=== PATIENT | female | born 1985 | race American Indian/Alaskan Native ===

== ENCOUNTER 2021-04-11 20:59 | Outpatient (CLI) | payer OTHER ==
[2021-04-11 21:32] VITALS: BP 111/59
[2021-04-11 21:58] LABS: Bacteria,Urine 2+ /HPF (Negative); Bilirubin,Urine NEG (Negative); Blood,Urine NEG (Negative); Color,Urine Straw (Yellow); Protein,Urine <15 mg/dL mg/dL (Negative); Urobilinogen,Urine < 2.0 mg/dL (<2.0)
[2021-04-11] MEDS ORDERED: NITROFURANTOIN MONOHYD/M-CRYST 100 MG CAP PO ONE (23:00)
== END 2021-04-11 22:36 | disposition home or self-care (01) ==
LOC: TRG 20:59 → APU 21:01 → TRG 22:36
PROVIDERS: ATTEND Obstetrics & Gynecology
DX: O26.892 Other specified pregnancy related conditions, second trimester (principal); R33.9 Retention of urine, unspecified; Z3A.23 23 weeks gestation of pregnancy
CPT/HCPCS: 81001; 87086

== ENCOUNTER 2021-07-09 11:29 | Outpatient (CLI) | payer OTHER ==
[2021-07-09] MEDS ORDERED: LACTATED RINGERS 500 ML IV ONE (12:13)
[2021-07-09 13:07] LABS: Bacteria,Urine 4+ /HPF (Negative); Bilirubin,Urine NEG (Negative); Blood,Urine NEG (Negative); Color,Urine Yellow (Yellow); Mucus,Urine 3+ /HPF; Urobilinogen,Urine < 2.0 mg/dL (<2.0)
--- NOTE | 2021-07-09 13:44 | Event Note ---
Date: 07/09/21 S: "I had a weird night last night. I was sweating and turned the air on, but then the air caused me to have pain." @ 36.4 weeks presents via self with c/o continuous lower middle back pain, presently 5/10, since last night as well as two episodes of emesis yesterday. Has not eaten or drank anything since last night. Took Zofran x2 yesterday immediately prior to eating. No known sick contacts. Affirms movement and denies vaginal bleeding, LOF, chest pain, headache, vision changes, SOB, and diarrhea. Does endorse ongoing, unchanged vaginal discharge. O: Unlabored breathing, speaking in complete sentences in no apparent acute distress HR: 77-96 BP: initial BP: 152/70, repeat BP x2 hours all normotensive. SpO2: 97-99 Cat 1 FHT Urine: neg nitrites/ neg leukocytes/ 30mg/dl protein/ trace ketones Urine Cx: pending A: Round ligament pain Isolated MRBP, pt currently asymptomatic for pre-eclampsia. Pre-eclampsia labs normal PO hydrate P: Discussed round ligament pain and measures to promote increased comfort including PO hydration, side lying release stretches, sitting on exercise ball, avoid sitting for prolonged periods of time, and support belt. Take Zofran 30 minutes prior to eating. Discharged home with strict return precautions. Keep all scheduled care appointments. Next appointment scheduled on: 07/14/21
[2021-07-09 15:02] LABS: Hematocrit 28.1 % (30.3-42.9); Mean Corpuscular HGB Conc 36 % (30-34); Mean Corpuscular Volume 92 fl (79-97); Platelet Count 295 K/mm3 (140-440); Red Blood Count 3.05 M/mm3 (3.65-5.03); Red Cell Distribution Width 12.9 % (13.2-15.2)
[2021-07-09 15:22] LABS: Alanine Aminotransferase 8 units/L (7-56); Uric Acid 2.7 mg/dL (3.5-7.6)
[2021-07-09 16:04] VITALS: BP 125/70
== END 2021-07-09 16:32 | disposition home or self-care (01) ==
LOC: APU 11:29 → TRG 11:29
PROVIDERS: ATTEND Obstetrics & Gynecology
DX: O26.893 Other specified pregnancy related conditions, third trimester (principal); M54.50 Low back pain, unspecified; R10.30 Lower abdominal pain, unspecified; R10.2 Pelvic and perineal pain; O99.513 Diseases of the respiratory system complicating pregnancy, third trimester; J45.909 Unspecified asthma, uncomplicated; Z3A.36 36 weeks gestation of pregnancy
CPT/HCPCS: 36415; 59025; 81001; 82565; 83615; 84450; 84460; 84550; 85027; 87086; J7120; 96360

== ENCOUNTER 2021-07-21 11:25 | Inpatient (IN) | payer OTHER ==
[2021-07-21] MEDS ORDERED: ACETAMINOPHEN 325 MG TAB PO PRN (11:52)
[2021-07-21] MEDS ORDERED: fentaNYL 100 MCG/2 ML INJ IV PRN (11:52)
[2021-07-21] MEDS ORDERED: MINERAL OIL 30 ML ORAL LIQD PO PRN ×2 (11:52→22:00)
[2021-07-21] MEDS ORDERED: LOPERAMIDE 2 MG CAP PO PRN (11:52)
[2021-07-21] MEDS ORDERED: CARBOPROST TROMETHAMINE 250 MCG/1 ML INJ IM PRN (11:52)
[2021-07-21] MEDS ORDERED: NalbUPHINE 10 MG/1 ML INJ IV PRN (11:52)
[2021-07-21] MEDS ORDERED: TERBUTALINE 1 MG/1 ML INJ SUB-Q PRN (11:52)
[2021-07-21] MEDS ORDERED: OXYTOCIN 10 UNIT/1 ML INJ IM PRN (11:52)
[2021-07-21] MEDS ORDERED: ONDANSETRON 4 MG/2 ML INJ IV PRN (11:52)
[2021-07-21] MEDS ORDERED: LIDOCAINE (2%) 20 MG/1 ML VIAL 20 ML MDV INFILTRATI SCH (11:52)
[2021-07-21] MEDS ORDERED: METHYLERGONOVINE MALEATE 0.2 MG/ML VIAL IM PRN (11:52)
[2021-07-21] MEDS ORDERED: miSOPROStol 200 MCG TAB PR PRN (11:52)
[2021-07-21] MEDS ORDERED: ePHEDrine SULFATE 50 MG/1 ML INJ IV PRN ×2 (11:52→12:30)
[2021-07-21] MEDS ORDERED: OXYTOCIN DRIP 30 UNITS/500 ML BAG IV SCH (12:00)
--- NOTE | 2021-07-21 12:02 | History and Physical Report ---
History of Present Illness Date of examination: 07/21/21 Chief complaint: sent from office for admission and IOL d/t pre-e History of present illness: EDC Calculations by LMP: 08/04/2021 Past History : 4 Term Births: 1 Premature Births: 0 Living Children: 1 Para: 1 Mult. Births: 0 Prev : 0 Aborta: 2 Elect. Ab: 1 Spont. Ab: 0 Ectopics: 1 # 1 Delivery date: 2005 Weeks Gestation: 37 labor: no Delivery type: Anesthesia type: none Delivery location: [place], [place] Sex: Male weight: 7-5 Comments: IOL: Possible macrosomia # 2 Delivery date: 2009 Weeks Gestation: Unknown Delivery type: ectopic Comments: had methotraxate # 3 Delivery date: 2015 Weeks Gestation: 7 Delivery type: EAB Comments: D&C: no complications Past Medical History: Reviewed and updated today: Allergies-seasonal Asthma Eczema Past Surgical History: Reviewed and updated today: negative Family History Summary: First Degree Blood Relative - Has No Known Family History - Entered On: 02/15 Social History: Patient is single Smoking History: Patient is a former smoker. 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 % Sun Exposure: rarely No Dietary Counseling Reason: pn yes Alcohol Use: no Drug Use: no Past Medical History Anesthesia Complications: negative Anemia: negative Autoimmune Disorder: negative Bleeding Disorder: negative Blood Transfusions: negative Breast Disease: negative Diabetes: negative Heart Disease: negative Hypertension: negative Hepatitis/Liver Disease: negative Kidney Disease/UTI: negative Neurologic/Epilepsy/Migraines: negative Phlebitis/Varicosities: negative Psychiatric: negative Pulmonary Disease/Asthma: negative Thyroid Disease: negative Hospitalizations: negative Surgery (Non-global consumer sector vice president): negative Abnormal PAP: negative HARRIET Exposure: negative Infertility: negative Uterine Anomaly: negative Uterine Surgery (not C/S): negative Other Gynecologic Problems: negative Social Hx: Patient is single Smoking History: Patient is a former smoker. Infection History Hx of STD: none HIV Risk Eval: no Hepatitis B Risk Eval: low risk Personal hx. of genital herpes: no Partner hx. of genital herpes: no Rash, Viral, or Febrile illness since last LMP? no Varicella/Chicken Pox Status: Previous Disease TB Risk: no Genetic History Congenital Heart Defect: Mom: no Forest Disease: Mom: no Thalassemia Mom: no Neural Tube Defect Mom: no Down's Syndrome Mom: no Gilmar-Sachs Mom: no Sickle Cell Disease/Trait Mom: no Hemophilia Mom: no Muscular Dystrophy Mom: no Cystic Fibrosis Mom: no Ward Chorea Mom: no Mental Retardation Mom: no Fragile X Mom: no Other Genetic/Chromosomal Disorder Mom: no Child w/other defect Mom: no Enviromental Exposures Xray Exposure: no Medication, drug, or alcohol use since LMP: no Chemical/Other Exposure: no Exposure to Cat Liter: no Hx of Parvovirus (Fifth Disease): no Occupational Exposure to Children: none Active Medications (reviewed today): None Current Allergies: * PCN (Critical) * SHELLFISH (Critical) * NUTS (Critical) Past History Past Medical History: other (see HPI) Past Surgical History: other (see HPI) 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) Family/Genetic History: other (see HPI) Social history: no significant social history - Obstetrical History Expected Date of Delivery: 08/04/21 Actual Gestation: 38 Week(s) 0 Day(s) : 4 Para: 1 Hx # Term Pregnancies: 1 Number of Pregnancies: 0 Spontaneous Abortions: 2 Induced : 0 Number of Living Children: 1 Medications and Allergies Allergies Allergy/AdvReac Type Severity Reaction Status Date / Time Penicillins AdvReac Swelling Verified 11/30/12 10:24 Home Medications Medication Instructions Recorded Confirmed Last Taken Type hydrOXYzine HCL [Atarax] 25 mg PO Q6HR PRN #20 tablet 11/30/12 02/23/13 02/17/13 19:00 Rx Azithromycin [Zithromax Z-JB] 250 mg PO DAILY #6 tab 02/23/13 Unknown Rx HYDROcodone/APAP 5-325 [[place] 1 each PO Q6HR PRN #10 tablet 02/23/13 Unknown Rx 5/325 mg] Neomy/Polymyx B/Hc (Otic) Soln 4 drops OT TID #10 ml 02/23/13 Unknown Rx [Cortisporin (Otic) Soln] Nitrofurantoin [place]/M-Cryst 100 mg PO Q12HR #14 capsule 04/11/21 Unknown Rx [Macrobid CAP] Review of Systems All systems: negative - Vital Signs Vital signs: Vital Signs Pulse BP Pulse Ox 81 124/77 98 07/21/21 11:50 07/21/21 11:50 07/21/21 11:50 Temp Pulse Resp BP Pulse Ox 85 124/77 97 07/21/21 11:55 07/21/21 11:50 07/21/21 11:55 - Physical Exam Cardiovascular: Regular rate Lungs: Positive: Normal air movement Abdomen: Positive: normal appearance, soft Genitourinary (Female): Positive: normal external genitalia, normal perenium Vulva: both: normal Vagina: Positive: normal moisture Uterus: Positive: normal size, normal contour Anus/Rectum: Positive: normal perianal skin Extremities: Positive: normal - Obstetrical FHR: auscultation normal Cervical Dilatation: 0 (SVE by Dr. Álvarez in office) Cervical Effacement Percentage: 50 station: -2 Results Result Diagrams: 07/21/21 11:52 07/21/21 11:52 All other labs normal. Assessment and Plan 36y/o @ 38+0 weeks admitted from office for IOL. b/p in office 140/98, +protein, +ketones, +nitrites. Pt c/o periorbital edema, ringing in her ears and nausea. Plan: Admit for IOL, serial IOL w/ cervical ripening GBS + tx in active labor Pre-e labs Mag sulfate for severe range b/p and when in active labor close monitoring of s/s worsening pre-e strict I&O straight cath urine culture d/t + nitrites - Patient Problems (1) 38 weeks gestation of Current Visit: Yes Status: Acute (2) Pre-eclampsia Current Visit: Yes Status: Acute Qualifiers: Trimester: third trimester Qualified Code(s): O14.93 - Unspecified pre- eclampsia, third trimester (3) GBS (group B Streptococcus carrier), +RV culture, currently Current Visit: Yes Status: Acute Plan to address problem: treat with cleocin when in active labor
[2021-07-21] MEDS: LACTATED RINGERS 1,000 ML IV SCH ×2 (12:22→19:59)
[2021-07-21 12:48] LABS: Hematocrit 31.6 % (30.3-42.9); Hemoglobin 10.5 gm/dl (10.1-14.3); Mean Corpuscular HGB Conc 33 % (30-34); Mean Corpuscular Volume 95 fl (79-97); Platelet Count 279 K/mm3 (140-440); Red Blood Count 3.32 M/mm3 (3.65-5.03); Red Cell Distribution Width 13.6 % (13.2-15.2)
[2021-07-21 12:51] LABS: Alanine Aminotransferase 9 units/L (7-56); Uric Acid 3.5 mg/dL (3.5-7.6)
[2021-07-21 13:13] LABS: Bilirubin,Urine Negative (Negative); Color,Urine Yellow (Yellow)
[2021-07-21 13:14] LABS: Protein,Urine <15 mg/dL mg/dL (Negative)
[2021-07-21] MEDS: OXYTOCIN DRIP 30 UNITS/500 ML BAG IV SCH (13:22)
[2021-07-21 13:32] LABS: Bacteria,Urine 4+ /HPF (Negative)
--- NOTE | 2021-07-21 18:33 | Event Note ---
Date: 07/21/21 When seen in the office pt was noted to have 4+protein and bps of 140s/90. 5 days ago while in triage she had 30 protein in UA and also and elevated bp of 150s/90s. Pt does not have h/o htn. Pt also c/o having ringing in her ears that started today. Pt admitted for IOl for preE based on elevated pbs and protein in UA in the office and previous triage admission. pt has been normotensive since admission so will hold mag at this time. Serial IOL was d/w by this provider prior to sending her in for IOL. All risk, benefits and alternatives were d/w pt and questions were addressed and answered.
[2021-07-21] MEDS ORDERED: DINOPROSTONE 10 MG VAG SUPP VG ONE (21:17)
[2021-07-22] MEDS: BUTORPHANOL 2 MG/1 ML INJ IV PRN ×2 (04:53→08:00)
--- NOTE | 2021-07-22 07:51 | Progress Note ---
Assessment and Plan A: 36 y.o. @ 38.1 wks , IOL d/t pre eclampsia. - Patient Problems (1) 38 weeks gestation of Current Visit: Yes Status: Acute Plan to address problem: Continue to monitor status through EFM. (2) GBS (group B Streptococcus carrier), +RV culture, currently Current Visit: Yes Status: Acute Plan to address problem: Antibiotics when in more active labor. (3) Pre-eclampsia Current Visit: Yes Status: Acute Qualifiers: Trimester: third trimester Qualified Code(s): O14.93 - Unspecified pre- eclampsia, third trimester Plan to address problem: Continue with IOL. - Will start Pitocin after shower, eating, walking for 2 hours. Continue to monitor blood pressures. Continue to monitor for worsening s/sx of pre eclampsia. Will consider magnesium infusion if blood pressures become persistently severe range. Subjective - Subjective Date of service: 07/22/21 Principal diagnosis: IUP @ 38.1 wks pre eclampsia Interval history: Pt denies MULLEN, blurred vision, spots before her eyes, chest pain, upper abdominal pain, vaginal bleeding, LOF. Having some contractions. Pt and family member upset d/t not knowing plan of care during IOL. Explained to the patient the IOL process for our practice. This AM we are going to remove the Cervidil, allow the patient to eat breakfast, apply the wireless EFM and allow her to walk around after eating breakfast. After walking for a few hours, will start Pitocin. Pt, family member verbalized understanding and agreed to plan. Patient reports: movement normal, no new complaints, no loss of fluid, no vaginal bleeding, no contractions Objective - Vital Signs Vital Signs: Vital Signs - 12hr 07/21/21 07/21/21 07/21/21 19:55 19:58 20:00 Temperature Pulse Rate 36 L 72 74 Respiratory Rate Blood Pressure 126/82 O2 Sat by Pulse 98 97 Oximetry 07/21/21 07/21/21 07/21/21 20:05 20:10 20:15 Temperature Pulse Rate 79 77 76 Respiratory Rate Blood Pressure O2 Sat by Pulse 98 98 98 Oximetry 07/21/21 07/21/21 07/21/21 20:20 20:25 20:29 Temperature Pulse Rate 71 73 75 Respiratory Rate Blood Pressure 129/70 O2 Sat by Pulse 98 99 Oximetry 07/21/21 07/21/21 07/21/21 20:30 20:35 20:40 Temperature Pulse Rate 76 88 76 Respiratory Rate Blood Pressure O2 Sat by Pulse 97 97 97 Oximetry 07/21/21 07/21/21 07/21/21 20:45 20:50 20:55 Temperature Pulse Rate 77 77 83 Respiratory Rate Blood Pressure O2 Sat by Pulse 99 99 98 Oximetry 07/21/21 07/21/21 07/21/21 20:58 21:00 21:05 Temperature Pulse Rate 71 89 77 Respiratory Rate Blood Pressure 127/73 O2 Sat by Pulse 97 97 Oximetry 07/21/21 07/21/21 07/21/21 21:54 21:59 22:04 Temperature Pulse Rate 76 96 H 93 H Respiratory Rate Blood Pressure O2 Sat by Pulse 96 98 99 Oximetry 07/21/21 07/21/21 07/21/21 22:09 22:12 22:22 Temperature Pulse Rate 84 80 84 Respiratory Rate Blood Pressure O2 Sat by Pulse 99 94 99 Oximetry 07/21/21 07/21/21 07/21/21 22:24 22:27 22:31 Temperature 97.9 F Pulse Rate 67 76 Respiratory 18 Rate Blood Pressure 124/76 O2 Sat by Pulse 99 98 Oximetry 07/21/21 07/21/21 07/21/21 22:32 22:37 22:42 Temperature Pulse Rate 80 94 H 81 Respiratory Rate Blood Pressure O2 Sat by Pulse 98 97 98 Oximetry 07/21/21 07/21/21 07/21/21 22:47 22:52 22:55 Temperature Pulse Rate 78 81 73 Respiratory Rate Blood Pressure 122/66 O2 Sat by Pulse 97 96 Oximetry 07/21/21 07/21/21 07/21/21 22:57 23:02 23:07 Temperature Pulse Rate 81 78 85 Respiratory Rate Blood Pressure O2 Sat by Pulse 97 96 96 Oximetry 07/21/21 07/21/21 07/21/21 23:12 23:17 23:22 Temperature Pulse Rate 89 90 99 H Respiratory Rate Blood Pressure O2 Sat by Pulse 96 96 97 Oximetry 07/21/21 07/21/21 07/21/21 23:26 23:27 23:32 Temperature Pulse Rate 82 88 90 Respiratory Rate Blood Pressure 105/57 O2 Sat by Pulse 97 97 Oximetry 07/21/21 07/21/21 07/21/21 23:37 23:42 23:47 Temperature Pulse Rate 86 95 H 93 H Respiratory Rate Blood Pressure O2 Sat by Pulse 98 97 97 Oximetry 07/21/21 07/21/21 07/21/21 23:52 23:55 23:57 Temperature Pulse Rate 103 H 95 H 88 Respiratory Rate Blood Pressure 115/72 O2 Sat by Pulse 98 94 97 Oximetry 07/22/21 07/22/21 07/22/21 00:02 00:07 00:11 Temperature Pulse Rate 98 H 86 93 H Respiratory Rate Blood Pressure O2 Sat by Pulse 97 95 94 Oximetry 07/22/21 07/22/21 07/22/21 00:12 00:17 00:22 Temperature Pulse Rate 81 104 H 89 Respiratory Rate Blood Pressure O2 Sat by Pulse 97 95 95 Oximetry 07/22/21 07/22/21 07/22/21 00:27 00:32 00:37 Temperature Pulse Rate 91 H 88 95 H Respiratory Rate Blood Pressure 108/61 O2 Sat by Pulse 96 96 97 Oximetry 07/22/21 07/22/21 07/22/21 00:42 00:47 00:52 Temperature Pulse Rate 110 H 104 H 102 H Respiratory Rate Blood Pressure O2 Sat by Pulse 97 97 97 Oximetry 07/22/21 07/22/21 07/22/21 00:56 00:57 01:02 Temperature Pulse Rate 103 H 95 H 97 H Respiratory Rate Blood Pressure 123/82 O2 Sat by Pulse 93 98 97 Oximetry 07/22/21 07/22/21 07/22/21 01:07 01:12 01:17 Temperature Pulse Rate 95 H 102 H 100 H Respiratory Rate Blood Pressure O2 Sat by Pulse 99 98 96 Oximetry 07/22/21 07/22/21 07/22/21 01:22 01:27 01:32 Temperature Pulse Rate 95 H 86 93 H Respiratory Rate Blood Pressure 119/68 O2 Sat by Pulse 97 94 96 Oximetry 07/22/21 07/22/21 07/22/21 01:37 01:42 01:47 Temperature Pulse Rate 96 H 93 H 93 H Respiratory Rate Blood Pressure O2 Sat by Pulse 97 97 97 Oximetry 07/22/21 07/22/21 07/22/21 01:52 01:55 01:57 Temperature Pulse Rate 95 H 90 101 H Respiratory Rate Blood Pressure 111/61 O2 Sat by Pulse 97 97 Oximetry 07/22/21 07/22/21 07/22/21 02:02 02:07 02:12 Temperature Pulse Rate 97 H 104 H 87 Respiratory Rate Blood Pressure O2 Sat by Pulse 97 97 98 Oximetry 07/22/21 07/22/21 07/22/21 02:15 02:17 02:22 Temperature 98.2 F Pulse Rate 98 H 111 H Respiratory 18 Rate Blood Pressure O2 Sat by Pulse 98 97 97 Oximetry 07/22/21 07/22/21 07/22/21 02:27 02:32 02:37 Temperature Pulse Rate 95 H 91 H 107 H Respiratory Rate Blood Pressure 120/68 O2 Sat by Pulse 97 95 98 Oximetry 07/22/21 07/22/21 07/22/21 02:42 02:47 02:52 Temperature Pulse Rate 96 H 103 H 99 H Respiratory Rate Blood Pressure O2 Sat by Pulse 96 97 95 Oximetry 07/22/21 07/22/21 07/22/21 02:56 02:57 03:02 Temperature Pulse Rate 98 H 103 H 93 H Respiratory Rate Blood Pressure 121/68 O2 Sat by Pulse 97 97 Oximetry 07/22/21 07/22/21 07/22/21 03:07 03:12 03:17 Temperature Pulse Rate 93 H 93 H 100 H Respiratory Rate Blood Pressure O2 Sat by Pulse 97 97 98 Oximetry 07/22/21 07/22/21 07/22/21 03:22 03:26 03:27 Temperature Pulse Rate 93 H 86 96 H Respiratory Rate Blood Pressure 120/69 O2 Sat by Pulse 97 97 Oximetry 07/22/21 07/22/21 07/22/21 03:32 03:37 03:42 Temperature Pulse Rate 88 89 87 Respiratory Rate Blood Pressure O2 Sat by Pulse 97 97 96 Oximetry 07/22/21 07/22/21 07/22/21 03:47 04:31 04:36 Temperature Pulse Rate 85 82 87 Respiratory Rate Blood Pressure O2 Sat by Pulse 97 98 97 Oximetry 07/22/21 07/22/21 07/22/21 04:41 04:46 04:51 Temperature Pulse Rate 83 94 H 94 H Respiratory Rate Blood Pressure O2 Sat by Pulse 97 98 97 Oximetry 07/22/21 07/22/21 07/22/21 04:55 04:56 05:01 Temperature Pulse Rate 84 80 94 H Respiratory Rate Blood Pressure 124/77 O2 Sat by Pulse 97 96 Oximetry 07/22/21 07/22/21 07/22/21 05:06 05:11 05:16 Temperature Pulse Rate 91 H 85 83 Respiratory Rate Blood Pressure O2 Sat by Pulse 96 95 96 Oximetry 07/22/21 07/22/21 07/22/21 05:21 05:25 05:26 Temperature Pulse Rate 86 81 89 Respiratory Rate Blood Pressure 114/68 O2 Sat by Pulse 95 94 92 Oximetry 07/22/21 07/22/21 07/22/21 05:31 05:36 05:41 Temperature Pulse Rate 80 82 82 Respiratory Rate Blood Pressure O2 Sat by Pulse 96 95 95 Oximetry 07/22/21 07/22/21 07/22/21 05:46 05:51 05:56 Temperature Pulse Rate 81 81 85 Respiratory Rate Blood Pressure 116/67 O2 Sat by Pulse 95 96 96 Oximetry 07/22/21 07/22/21 07/22/21 06:01 06:06 06:11 Temperature Pulse Rate 84 82 82 Respiratory Rate Blood Pressure O2 Sat by Pulse 96 95 96 Oximetry 07/22/21 07/22/21 07/22/21 06:16 06:21 06:26 Temperature Pulse Rate 79 88 86 Respiratory Rate Blood Pressure 125/77 O2 Sat by Pulse 97 96 98 Oximetry 07/22/21 07/22/21 07/22/21 06:31 06:40 06:45 Temperature 97.5 F L Pulse Rate 81 83 79 Respiratory 18 Rate Blood Pressure O2 Sat by Pulse 98 98 98 Oximetry 07/22/21 07/22/21 07/22/21 06:50 06:55 07:00 Temperature Pulse Rate 84 75 86 Respiratory Rate Blood Pressure O2 Sat by Pulse 98 98 98 Oximetry 07/22/21 07/22/21 07/22/21 07:05 07:10 07:15 Temperature Pulse Rate 79 89 90 Respiratory Rate Blood Pressure O2 Sat by Pulse 96 96 97 Oximetry 07/22/21 07/22/21 07/22/21 07:20 07:25 07:30 Temperature Pulse Rate 85 83 80 Respiratory Rate Blood Pressure O2 Sat by Pulse 98 96 97 Oximetry 07/22/21 07/22/21 07/22/21 07:35 07:37 07:40 Temperature Pulse Rate 89 78 89 Respiratory Rate Blood Pressure 139/82 137/81 O2 Sat by Pulse 98 98 Oximetry 07/22/21 07:45 Temperature Pulse Rate 80 Respiratory Rate Blood Pressure O2 Sat by Pulse 98 Oximetry - Exam Breasts: deferred Cardiovascular: Regular rate Lungs: Normal air movement Abdomen: Present: normal appearance, soft FHR: category 1 Uterine Contraction Monitor Mode: External Cervical Dilatation: 0.5 (Per operations label clerk RN. ) Cervical Effacement Percentage: 50 station: -3 Uterine Contraction Pattern: Regular Uterine Tone Measurement Phase: Resting Uterine Contraction Intensity: Moderate Extremities: normal Deep Tendon Reflex Grade: Normal +2 - Labs Labs: Abnormal Labs 07/21/21 07/21/21 11:52 12:25 RBC 3.32 L Urine WBC (Auto) 10.0 H U Epithel Cells (Auto) 50.0 H Laboratory Results - last 24 hr 07/21/21 07/21/21 07/21/21 11:30 11:45 11:52 WBC 9.9 RBC 3.32 L Hgb 10.5 Hct 31.6 MCV 95 MCH 32 MCHC 33 RDW 13.6 Plt Count 279 Creatinine Estimated GFR Uric Acid AST ALT Lactate Dehydrogenase Urine Color Urine Turbidity Urine pH Ur Specific [place] Urine Protein Urine Glucose (UA) Urine Ketones Urine Nitrite Urine Bilirubin Urine Urobilinogen Ur Leukocyte Esterase Urine WBC (Auto) Urine RBC (Auto) U Epithel Cells (Auto) Urine Bacteria (Auto) Syphilis IgG/IgM Ab Nonreactive Coronavirus (PCR) Cancelled SARS-CoV-2 (PCR) Negative Blood Type Antibody Screen 07/21/21 07/21/21 07/21/21 11:52 12:09 12:25 WBC RBC Hgb Hct MCV MCH MCHC RDW Plt Count Creatinine 0.6 Estimated GFR > 60 Uric Acid 3.5 AST 13 ALT 9 Lactate Dehydrogenase 172 Urine Color Yellow Urine Turbidity Clear Urine pH 6.0 Ur Specific [place] 1.020 Urine Protein <15 mg/dl Urine Glucose (UA) Negative Urine Ketones Trace Urine Nitrite Negative Urine Bilirubin Negative Urine Urobilinogen 0.0 Ur Leukocyte Esterase Negative Urine WBC (Auto) 10.0 H Urine RBC (Auto) 3.0 U Epithel Cells (Auto) 50.0 H Urine Bacteria (Auto) 4+ Syphilis IgG/IgM Ab Coronavirus (PCR) SARS-CoV-2 (PCR) Blood Type B POSITIVE Antibody Screen Negative
[2021-07-22] MEDS: OXYTOCIN DRIP 30 UNITS/500 ML BAG IV SCH (15:20)
[2021-07-22] MEDS: LACTATED RINGERS 1,000 ML IV SCH (20:47)
--- NOTE | 2021-07-22 20:54 | Event Note ---
Date: 07/22/21 Pt and family member upset regarding IOL process. Explained again to patient and family member the IOL process, medications used, and the process may take three days to get her in active labor. Pt and family member still upset regarding the process. Patient does not want another Cervidil placed. Explained will check cervix and formulate a plan based off cervical exam. Cervical exam: 2/50/-4. station higher than previous exam. Will order u/s for presentation. Pitocin as ordered once vertex presentation confirmed.
[2021-07-22] MEDS ORDERED: DINOPROSTONE 10 MG VAG SUPP VG ONE (21:00)
--- NOTE | 2021-07-22 21:57 | Ultrasound Report ---
ULTRASOUND OBSTETRIC LIMITED INDICATION / CLINICAL INFORMATION: presentation. Clinical Gestational Age (GA) in weeks, days: 38, 1 TECHNIQUE: Transabdominal. COMPARISON: None available. FINDINGS: HEART RATE (beats per minute): 137 PRESENTATION: Cephalic. ADDITIONAL FINDINGS: None. IMPRESSION: 1. No significant abnormality. Signer Name: Nii Gross DO Signed: 07/22/2021 9:52 PM Workstation Name: [id number]
[2021-07-23] MEDS ORDERED: ePHEDrine SULFATE 50 MG/1 ML INJ IV PRN (00:17)
[2021-07-23] MEDS ORDERED: NALOXONE 0.4 MG/1 ML INJ IV PRN (00:17)
--- NOTE | 2021-07-23 00:18 | Anesthesia Consultation ---
Anesthesia Consult and Med Hx Date of service: 07/23/21 - Airway Anesthetic Teeth Evaluation: Good ROM Head & Neck: Adequate Mental/Hyoid Distance: Adequate Mallampati Class: Class II Intubation Access Assessment: Probably Good - Pulmonary Exam CTA: Yes - Cardiac Exam Cardiac Exam: RRR - Pre-Operative Health Status ASA Pre-Surgery Classification: ASA2 Proposed Anesthetic Plan: Epidural, Spinal - Pulmonary Hx Asthma: Yes (FLARES UP WHEN ) - Cardiovascular System Hx Hypertension: No - Central Nervous System Hx Seizures: No Hx Psychiatric Problems: No - Endocrine Hx Renal Disease: No Hx Hypothyroidism: No Hx Hyperthyroidism: No - Hematic Hx Anemia: No Hx Sickle Cell Disease: No - Other Systems Hx Alcohol Use: No
--- NOTE | 2021-07-23 00:19 | Progress Note ---
Spinal Anesthesia Block - Spinal Anesthesia Block Start Time: 23:48 Stop Time: 23:59 Performed by:: ALEXANDER SANTAMARIA Procedure: Combined Spinal-Epidural Patient is requesting epidural for labor and pain. H&P, labs were reviewed. Patient ID confirmed, all questions and concerns were answered, and consent was signed. Timeout was performed at bedside. Patient in sitting position. Sterile prep and drape was performed. 3ml of 1% lidocaine skin wheal at L3- L4 interspace. 17-gauge Tuohy epidural needle was advanced to loss of resistance with saline technique cm. 25G spinal needle introduced through epidural needle to the spinal space. Clear CSF. Injected .1ml of Precedex in the spinal space. Negative CSF negative blood. Epidural catheter advanced to 15 centimeters. Negative aspiration, test dose 3ml 1.5% Lidocaine with epi - negative. Sterile dressing applied. Patient tolerated procedure.
[2021-07-23] MEDS ORDERED: fentaNYL-BUPIV 2 MCG/ML-0.125% 200 MCG/100 ML BAG EPIDURAL SCH (01:00)
--- NOTE | 2021-07-23 03:13 | Procedure Note ---
OB Delivery Note - Delivery Date of Delivery: 07/23/21 ( @ 0215) [employer]: SEVEN MARIE Estimated blood loss: 200cc - Vaginal Delivery presentation: vertex Delivery position: OA Intrapartum events: preeclampsia, mult.variable deceleratio Delivery induction: cervidil Delivery augmentation: pitocin Delivery monitor: external FHT, external uterine Route of delivery: Delivery placenta: spontaneous Delivery cord: 3 umbilical vessels Episiotomy: none Delivery laceration: 1st degree (Hemostatic, no repair needed) Anesthesia: epidural Delivery comments: of viable female infant. Infant to mother's abdomen for skin to skin. Cord clamped after cessation of pulse. Cut by grandmother of . Spontaneous delivery of placenta, intact, complete, 3 vessels noted. Fundus firm, minimal bleeding noted. Perineum and vagina inspected. First degree laceration noted, hemostatic, no repair needed. Sponges and instruments counted X2 and correct X2. Infant weight 6-9. Apgars 8,9. EBL 200 ml. and mother left in stable condition in care of RN. - A at 1 minute: 8 at 5 minutes: 9 Infant Gender: Female (Cristal, 6-9)
[2021-07-23] MEDS ORDERED: PROMETHAZINE 25 MG TAB PO PRN (08:31)
[2021-07-23] MEDS ORDERED: LANOLIN/ZINC/DIMETHICONE (LANSINOH) 7 GM TP PRN ×2 (08:31)
[2021-07-23] MEDS ORDERED: miSOPROStol 100 MCG TAB PR PRN (08:31)
[2021-07-23] MEDS ORDERED: BENZOCAINE/MENTHOL 20/0.5% TOP SPRAY 56 GM TP PRN (08:31)
[2021-07-23] MEDS ORDERED: oxyCODONE /ACETAMINOPHEN 5-325MG TAB PO PRN (08:31)
[2021-07-23] MEDS ORDERED: ONDANSETRON 4 MG/2 ML INJ IV PRN (08:31)
[2021-07-23] MEDS ORDERED: ACETAMINOPHEN 325 MG TAB PO PRN (08:31)
[2021-07-23] MEDS ORDERED: OXYTOCIN DRIP 30 UNITS/500 ML BAG IV SCH (08:31)
[2021-07-23] MEDS ORDERED: WITCH HAZEL/ GLYCERIN PAD TP PRN (08:31)
[2021-07-23] MEDS ORDERED: MAGNESIUM HYDROXIDE (MOM) ORAL LIQD UDC PO PRN (08:31)
[2021-07-23] MEDS ORDERED: diphenhydrAMINE 25 MG CAP PO PRN (08:31)
[2021-07-23] MEDS ORDERED: PROMETHAZINE 25 MG RECT SUPP PR PRN (08:31)
--- NOTE | 2021-07-23 08:31 | Progress Note ---
Assessment and Plan A: 36 y.o. s/p , pre eclampsia. - Patient Problems (1) Pre-eclampsia Current Visit: Yes Status: Acute Qualifiers: Trimester: third trimester Qualified Code(s): O14.93 - Unspecified pre- eclampsia, third trimester Plan to address problem: Continue to monitor blood pressures. Continue to monitor for worsening s/sx of pre eclampsia. (2) (normal spontaneous vaginal delivery) Current Visit: Yes Status: Acute Plan to address problem: Continue with care. Was GBS positive and received two doses of Clindamycin. - Will speak with Peds team to see if will be able to be discharged home with mother on 07/24 or if infant will need to stay 48 hours. Subjective - Subjective Date of service: 07/23/21 Principal diagnosis: s/p ~ 5 hours Interval history: Pt denies MULLEN, blurred vision, spots before her eyes, chest pain, shortness of breath, and upper abdominal pain. Patient reports: appetite normal, voiding normally, pain well controlled, ambulating normally Ider: doing well Objective - Vital Signs Latest vital signs: Vital Signs Temp Pulse Resp BP Pulse Ox Pulse Ox 07/23/21 05:28 86 98 07/23/21 05:26 87 93 07/23/21 05:23 77 99 07/23/21 05:18 69 99 07/23/21 05:14 67 119/68 07/23/21 05:13 69 98 07/23/21 05:08 78 97 07/23/21 05:04 73 119/78 07/23/21 05:03 81 98 07/23/21 04:58 88 99 07/23/21 04:54 83 128/83 07/23/21 04:53 77 98 07/23/21 04:48 73 98 07/23/21 04:46 97.6 F 07/23/21 04:45 78 119/81 07/23/21 04:43 71 98 07/23/21 04:38 79 97 07/23/21 04:34 77 122/84 07/23/21 04:33 77 98 07/23/21 04:28 83 98 07/23/21 04:24 69 121/80 07/23/21 04:23 74 98 07/23/21 04:18 75 99 07/23/21 04:14 71 117/75 06/05 04:13 72 99 06/05 04:08 71 98 0605 04:04 68 112/73 0605 04:03 67 97 0605 03:58 70 97 0605 03:54 62 114/74 0605 03:53 67 96 0605 03:48 68 97 0605 03:44 61 110/69 06/05 03:43 66 98 0605 03:38 68 97 0605 03:34 67 110/70 0605 03:33 69 97 06/05/ 03:28 68 96 0605 03:24 69 114/73 0605 03:23 70 96 0605 03:18 68 98 0605 03:14 68 114/71 0605 03:13 68 98 0605 03:08 70 98 0605 03:05 83 120/72 0605 03:03 77 97 06/05 02:58 70 98 06/05 02:55 69 93 06/05 02:53 84 97 0605 02:48 82 96 06/05 02:45 88 122/64 0605 02:43 92 H 98 0605 02:38 94 H 97 0605 02:35 97.7 F 93 H 125/68 0605 02:33 94 H 97 06/05 02:28 88 98 0605 02:25 82 114/57 06/05/22 02:23 84 97 06/05 02:18 101 H 96 06/05 02:13 106 H 97 06/05 02:09 96 H 94 06/05 02:08 86 95 06/05 02:04 79 97/56 06/05/ 02:03 81 93 06/05/22 01:58 85 93 06/05/22 01:55 83 98/55 06/05/22 01:53 83 94 06/05/22 01:50 86 94 06/05/22 01:48 82 95 06/0522 01:45 92 H 116/60 06/05/22 01:43 106 H 94 07/23/21 01:42 81 94 05 01:38 85 95 05 01:36 87 93 05 01:33 91 H 99 0605 01:31 86 94 07/23/21 01:28 105 H 96 07/23/21 01:25 87 123/78 07/23/21 01:23 90 98 05 01:18 104 H 98 07/23/21 01:16 97 H 94 05 01:13 108 H 97 07/23/21 01:08 106 H 98 07/23/21 01:06 82 113/64 07/23/21 01:03 100 H 97 07/23/21 00:58 88 95 07/23/21 00:53 86 98 07/23/21 00:52 99 H 111/71 07/23/21 00:48 102 H 97 07/23/21 00:43 96 H 97 07/23/21 00:40 82 94 07/23/21 00:38 89 97 0605 00:36 82 123/60 05 00:34 84 94 05 00:33 87 95 07/23/21 00:28 92 H 98 05 00:23 83 98 05 00:20 86 123/58 05 00:19 88 114/54 07/23/21 00:18 80 96 05 00:16 85 130/59 0605 00:14 86 135/74 05 00:13 83 97 05 00:12 88 137/79 0605 00:11 80 128/80 0605 00:08 72 129/57 97 05 00:07 82 134/63 0605 00:04 95 H 141/83 05 00:03 81 98 0605 00:02 90 141/80 05 00:00 88 131/78 06 23:58 97 H 136/79 98 07/22/21 23:56 77 132/81 06 23:54 88 122/74 0604 23:53 93 H 96 06/04/22 23:48 88 145/82 96 06 23:43 86 97 06 23:38 90 97 07/22/21 23:33 100 H 100 07/22/21 23:28 84 97 07/22/21 23:23 84 129/82 98 07/22/21 23:18 85 97 07/22/21 23:13 82 97 07/22/21 23:08 86 98 07/22/21 23:03 81 98 06 22:58 82 98 06 22:57 98.0 F 07/22/21 22:53 77 97 06 22:52 80 135/77 07/22/21 22:33 83 98 07/22/21 22:28 84 100 07/22/21 22:23 83 98 07/22/21 22:18 81 97 07/22/21 22:13 85 98 07/22/21 22:08 88 98 07/22/21 22:03 84 96 07/22/21 21:58 92 H 98 07/22/21 21:53 80 97 07/22/21 21:48 80 97 07/22/21 21:43 86 98 07/22/21 21:38 87 98 07/22/21 21:33 93 H 96 07/22/21 21:28 89 97 07/22/21 21:23 91 H 98 07/22/21 21:18 83 96 07/22/21 21:13 79 96 07/22/21 21:08 83 96 07/22/21 21:03 78 97 07/22/21 20:58 81 99 07/22/21 20:53 82 97 07/22/21 20:48 84 98 07/22/21 20:43 87 98 06 20:38 87 99 07/22/21 20:33 86 96 07/22/21 20:28 83 97 07/22/21 20:23 89 98 07/22/21 20:18 82 98 07/22/21 20:16 84 94 07/22/21 20:15 81 121/78 07/22/21 20:13 89 98 06 20:08 79 98 06 20:07 98.2 F 998 H 07/22/21 19:58 86 98 06/04/22 19:53 88 97 07/22/21 19:48 87 98 07/22/21 19:43 89 97 07/22/21 19:38 88 97 07/22/21 19:33 87 98 07/22/21 19:28 85 98 07/22/21 19:23 94 H 98 07/22/21 19:18 90 98 07/22/21 19:13 87 98 07/22/21 19:08 85 98 07/22/21 19:03 86 98 07/22/21 18:58 92 H 98 07/22/21 18:53 86 97 07/22/21 18:48 85 98 07/22/21 18:00 107 H 99 07/22/21 17:55 100 H 99 07/22/21 17:50 86 98 07/22/21 17:45 85 98 07/22/21 17:40 82 99 07/22/21 17:35 78 98 07/22/21 17:30 82 99 07/22/21 17:25 77 98 07/22/21 17:20 77 98 07/22/21 17:15 82 98 07/22/21 17:10 84 100 07/22/21 17:05 79 99 07/22/21 17:00 82 99 07/22/21 16:55 81 98 07/22/21 16:39 90 07/22/21 16:38 85 99 07/22/21 16:33 99 H 97 07/22/21 16:28 89 97 07/22/21 16:23 85 98 07/22/21 16:18 93 H 98 07/22/21 16:13 92 H 97 07/22/21 16:08 92 H 97 07/22/21 16:03 88 97 07/22/21 15:58 87 98 07/22/21 15:53 91 H 97 07/22/21 15:48 84 97 07/22/21 15:43 80 97 07/22/21 15:38 82 98 07/22/21 15:33 81 98 07/22/21 15:28 85 97 07/22/21 15:25 99.1 F 18 07/22/21 15:23 82 98 07/22/21 15:18 83 97 07/22/21 15:13 94 H 97 07/22/21 15:12 85 123/71 94 07/22/21 15:08 95 H 98 07/22/21 14:58 86 96 07/22/21 14:53 81 96 07/22/21 14:51 87 94 07/22/21 14:48 82 93 07/22/21 14:46 85 94 07/22/21 14:43 79 96 07/22/21 14:38 83 97 07/22/21 14:33 94 H 96 07/22/21 14:28 86 97 07/22/21 14:23 78 97 07/22/21 14:18 80 95 07/22/21 14:13 77 97 07/22/21 14:08 77 96 07/22/21 14:03 80 97 07/22/21 13:58 80 96 07/22/21 13:53 78 96 07/22/21 13:48 75 97 07/22/21 13:43 98 H 98 07/22/21 13:38 83 96 07/22/21 13:33 78 96 07/22/21 13:28 83 97 07/22/21 13:23 85 97 07/22/21 13:18 80 97 07/22/21 13:13 91 H 97 07/22/21 13:08 81 99 07/22/21 13:03 83 97 07/22/21 12:58 80 97 07/22/21 12:53 92 H 97 07/22/21 12:48 84 98 07/22/21 12:43 96 H 100 07/22/21 12:38 94 H 96 07/22/21 12:33 85 97 07/22/21 12:28 85 97 07/22/21 12:23 82 97 07/22/21 12:18 82 97 07/22/21 12:13 85 97 07/22/21 12:08 84 98 07/22/21 12:04 87 93 07/22/21 12:03 79 96 07/22/21 11:58 84 130/81 91 07/22/21 10:23 98.1 F 16 07/22/21 09:58 74 128/73 07/22/21 09:31 89 99 07/22/21 08:57 98 07/22/21 08:44 88 96 07/22/21 08:39 87 97 07/22/21 08:35 80 94 0604/22 08:34 81 95 Intake and Output 07/22/21 07/23/21 07/23/21 22:59 06:59 14:59 Intake Total 381.500 Output Total 300 Balance 381.500 -300 Intake: IV 21.500 PITOCin/NS 30 UNIT/500ML 21.500 30 units In 500 ml @ 2 mls/hr IV TITR LAZARA Rx#: [id number] Oral 360 Output: Urine 300 Indwelling 300 Other: Total, Intake Amount 360 # Voids Void 600 Estimated Blood Loss 200 - Exam Narrative Exam: Patient was GBS positive and received two doses of Clindomycin before delivery. Cardiovascular: Present: Regular rate Lungs: Present: Normal air movement Abdomen: Present: normal appearance, soft Vulva: both: normal Uterus: Present: normal, firm, other (Minimal vaginal bleeding noted. ) Extremities: Present: normal Deep Tendon Reflex Grade: Normal +2
--- NOTE | 2021-07-23 11:01 | Post Anesthesia Evaluation ---
- Post Anesthesia Evaluation Patient Participated: Yes Airway Patent: Yes Stable Respiratory Function: Yes Temp > 96.8F: Yes Pain Manageable: Yes Adequeate Hydration: Yes Anesthesia Complications: No Block Receding Appropriately: Yes
[2021-07-23] MEDS: DOCUSATE SODIUM 100 MG CAP PO SCH ×2 (13:53→21:38)
[2021-07-23] MEDS: IBUPROFEN 800 MG TAB PO SCH ×2 (13:53→21:38)
[2021-07-23] MEDS: PRENATAL VIT27-FE FUMARATE-FOLIC ACID VIT TAB PO SCH (13:54)
[2021-07-23 16:22] LABS: Hematocrit 29.2 % (30.3-42.9); Hemoglobin 9.7 gm/dl (10.1-14.3)
--- NOTE | 2021-07-23 23:39 | Progress Note ---
Subjective Date of service: 07/23/21 Principal diagnosis: s/p ~ 5 hours Interval history: At 0130, pt complained of an unilateral (left side) block via epidural. Upon inspection of epidural catheter, the catheter was no longer at 15cm. Epidural pump was at the maximum dose. Epidural catheter was removed, tip intact and a Saddle block/ Spinal was administered. Pt stated immediated relief. Pt tolerated procedure. Pt was placed in supine position and assessed. Objective - Constitutional Vitals: Vital Signs - 12hr 07/23/21 07/23/21 07/23/21 12:00 15:46 18:30 Temperature 98.7 F 97.7 F 97.7 F Pulse Rate 65 81 79 Respiratory 19 18 18 Rate Blood Pressure 140/89 109/71 Blood Pressure 114/68 [Right] O2 Sat by Pulse 99 97 100 Oximetry - Labs CBC & Chem 7: 07/23/21 16:01 07/21/21 11:52 Labs: Abnormal lab results 07/23/21 Range/Units 16:01 Hgb 9.7 L (10.1-14.3) gm/dl Hct 29.2 L (30.3-42.9) %
--- NOTE | 2021-07-23 23:43 | Progress Note ---
Spinal Anesthesia Block - Spinal Anesthesia Block Start Time: 01:37 Stop Time: :40 Performed by:: ALEXANDER SANTAMARIA Procedure: Spinal H&P, labs were reviewed. Patient ID confirmed, all questions and concerns were answered, and consent was signed. Timeout was performed at bedside. Patient in sitting position. Sterile prep and drape was performed. 3ml of 1% lidocaine skin wheal at L3- L4 interspace. 24G PENCAN spinal needle was advanced. Clear CSF. Injected Bupivacaine 0.75% 1 ml and 0.05ml of Precedex in the spinal space. Negative paresthesia, negative blood. Patient tolerated procedure. Pt placed in supine position.
[2021-07-24] MEDS: PRENATAL VIT27-FE FUMARATE-FOLIC ACID VIT TAB PO SCH ×2 (00:38→11:42)
[2021-07-24] MEDS: IBUPROFEN 800 MG TAB PO SCH ×4 (00:38→11:41)
[2021-07-24] MEDS: DOCUSATE SODIUM 100 MG CAP PO SCH (00:40)
[2021-07-24] MEDS ORDERED: TETANUS,DIPH,PERTUSS(ACELL) VACCINE 0.5 ML SYRINGE IM ONE (03:44)
--- NOTE | 2021-07-24 09:58 | Discharge Summary ---
Providers - Providers Date of Admission: 07/21/21 12:14 Date of discharge: 07/24/21 (pt desires discharge home today) Attending physician: JEN ÁLVAREZ 07/23/21 18:35 Consult to Sandblaster Supervisor [CONS] Routine Reason For Exam: mom considering BF with formula shortage Primary care physician: JEN ÁLVAREZ Hospitalization Reason for admission: induction of labor, IUP at term Delivery: Episiotomy: none Laceration: 1st degree Other procedures: none complications: none Discharge diagnosis: IUP at term delivered Webb baby: female Condition at discharge: Good Disposition: HOME / SELF CARE / HOMELESS - Discharge Diagnoses (1) (normal spontaneous vaginal delivery) Status: Acute Comment: Pt denies all complaints this am. Pt reports ambulating, voiding, and eating without difficulty and desires to discharge home today. Discharge precautions reviewed. Dr. Álvarez made aware. Plan - Provider Discharge Summary Activity: routine, no sex for 6 weeks, no heavy lifting 4 weeks, no strenuous exercise Diet: routine Instructions: routine Additional instructions: [] Smoking cessation referral if applicable(refer to patient education folder for contact #) [] Refer to [facility] Booklet Call your doctor immediately for: * Fever > 100.5 * Heavy vaginal bleeding ( >1 pad per hour) * Severe persistent headache * Shortness of breath * Reddened, hot, painful area to leg or breast Congratulations! Please call [phone] and schedule your blood pressure check in 1 week. Thank you! - Follow up plan Follow up: JEN ÁLVAREZ MD [Primary Care Provider] - 7 Days
[2021-07-24] MEDS ORDERED: FERROUS SULFATE 325 MG TAB PO SCH (10:00)
[2021-07-24 16:58] VITALS: BP 133/86
== END 2021-07-24 16:58 | disposition home or self-care (01) | DRG 775 ==
LOC: TRG 11:25 → LD 11:27 → TRG 12:14 → OB 07-23 07:44
PROVIDERS: ADMIT Obstetrics & Gynecology; ATTEND Obstetrics & Gynecology
PROC: 10E0XZZ Delivery of Products of Conception, External Approach (ICD-10-PCS; principal; 2021-07-23)
PROC: 0HQ9XZZ Repair Perineum Skin, External Approach (ICD-10-PCS; 2021-07-23)
PROC: 3E0R3BZ Introduction of Anesthetic Agent into Spinal Canal, Percutaneous Approach (ICD-10-PCS; 2021-07-23)
PROC: 00HU33Z Insertion of Infusion Device into Spinal Canal, Percutaneous Approach (ICD-10-PCS; 2021-07-23)
PROC: 3E0234Z Introduction of Serum, Toxoid and Vaccine into Muscle, Percutaneous Approach (ICD-10-PCS; 2021-07-24)
DX: O76 Abnormality in fetal heart rate and rhythm complicating labor and delivery (principal); O99.824 Streptococcus B carrier state complicating childbirth; Z3A.38 38 weeks gestation of pregnancy; Z37.0 Single live birth; O14.94 Unspecified pre-eclampsia, complicating childbirth; Z20.822 Contact with and (suspected) exposure to COVID-19; O70.0 First degree perineal laceration during delivery; Z23 Encounter for immunization
CPT/HCPCS: 36415; 59025; 59200; 76815; 81001; 82565; 83615; 84450; 84460; 84550; 85014; 85018; 85027; 86592; 86850; 86900; 86901; 87086; 88307; 96360; 96365; G0378; J3490; J7502; J0595; J2405; J2590; J7120; U0003